=== PATIENT | male | born 1985 | race Caucasian/White ===

== ENCOUNTER 2018-09-07 09:13 | Emergency (ER) | payer SELFPAY ==
[2018-09-07 09:14] VITALS: BP 113/77; PULSE 82; RESP 17; TEMP 36.9; O2SAT 99
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
== END 2018-09-07 10:54 | disposition home or self-care (01) ==
PROVIDERS: Emergency Provider Emergency Medicine
DX: S22.31XA Fracture of one rib, right side, initial encounter for closed fracture (principal); S43.101A Unspecified dislocation of right acromioclavicular joint, initial encounter; Y09 Assault by unspecified means; Y93.89 Activity, other specified; Y92.9 Unspecified place or not applicable; F17.200 Nicotine dependence, unspecified, uncomplicated
CPT/HCPCS: 71101; 99282